=== PATIENT | female | born 1935 | race Caucasian/White ===

== ENCOUNTER 2018-04-04 00:54 | Inpatient (IN) ==
[2018-04-04] MEDS ORDERED: SOLU-MEDROL ONE (01:01)
[2018-04-04] MEDS ORDERED: DUONEB (A & A) INH ONE ×3 (01:01→01:24)
[2018-04-04] MEDS ORDERED: SOLU-MEDROL IV ONE (01:06)
[2018-04-04] MEDS ORDERED: LEVAQUIN 750 MG/D5W 750 MG/150 ML IVPB IV SCH (01:15)
[2018-04-04 01:16] LABS: BE 0.7 mmoll (-3.0-3.0); BLOOD TYPE ARTERIAL; HCO3-(ACT) 25.2 mmoll (20.0-26.0); METHB 1.2 % (0.0-1.5); SAMPLE BLOOD; SAO2 91.2 % (95.0-100.0); THB 12.9 g/dL (11.5-17.4)
[2018-04-04] MEDS ORDERED: ALBUTEROL NEB ONE (01:18)
[2018-04-04 01:20] LABS: PCO2(98.6) 84 mmHg (35-45); PO2(98.6) 68 mmHg (60-100); pH(98.6) 7.18 (7.35-7.45)
[2018-04-04 01:21] LABS: ALLEN TEST NO; MODALITY CANNULA; O2HB 87.8 % (95.0-99.0)
[2018-04-04] MEDS ORDERED: LASIX IV ONE ×3 (01:26→10:07)
[2018-04-04 01:39] LABS: BASO# 0.01 X1000 (0.0-0.2); BASO% 0.1 % (0.0-0.8); EOS# 0.04 X1000 (0.0-0.7); EOS% 0.4 % (0.0-10.0); HEMOGLOBIN 13.1 g/dL (12.0-16.0); IMM GRAN# 0.05 X1000 (0.0-0.04); IMM GRAN% 0.5 % (0.0-0.5); LYMPH# 3.36 X1000 (1.2-3.4); LYMPH% 32.1 % (20.5-51.1); MCH 25.8 PG (27-31); MCHC 30.5 g/dL (33-37); MCV 84.6 FL (81-99); MONO% 11.5 % (1.7-9.3); NEUT# 5.81 X1000 (1.4-6.5); NEUT% 55.4 % (42.2-75.2); PLT 266 X1000 (130-400); RBC 5.08 XMIL (4.2-5.4); RDW 17.3 % (11.5-14.5); WBC 10.47 X1000 (4.8-10.8)
[2018-04-04] MEDS ORDERED: ALBUTEROL NEB INH ONE (01:43)
[2018-04-04] MEDS ORDERED: BENADRYL IV ONE (02:01)
[2018-04-04 02:13] LABS: AGAP 14; ALBUMIN 3.2 g/dL (3.5-5.0); ALKALINE PHOSPHATASE 135 U/L (32-104); BUN 13 mg/dL (8-22); CALCIUM 9.3 mg/dL (8.8-10.2); CHLORIDE 102 mmol/L (98-107); COSMO 288; CREATININE 0.6 mg/dL (0.5-0.9); ESTIMATED GFR > 60; GLUCOSE 151 mg/dL (70-104); GOT 56 U/L (10-30); GPT 26 U/L (10-36); MAGNESIUM 2.1 mg/dL (1.5-2.7); POTASSIUM 4.9 mmol/L (3.5-5.1); SODIUM 143 mmol/L (136-145); TCO2 27 mmol/L (25-35); TOTAL PROTEIN 7.8 g/dL (6.3-8.3)
--- NOTE | 2018-04-04 02:42 | EKG Report ---
Test Performed on : 04/04/2018 01:08:16 AM Test Reason : sob Blood Pressure : / mmHG Vent. Rate : 134 BPM Atrial Rate : 129 BPM P-R Int : 154 ms QRS Dur : 056 ms QT Int : 286 ms P-R-T Axes : 064 -51 075 degrees QTc Int : 427 ms Undetermined rhythm Left anterior fascicular block Left ventricular hypertrophy with repolarization abnormality Abnormal ECG No previous ECGs available Unconfirmed Result
--- NOTE | 2018-04-04 04:05 | PROVIDER DOCUMENTATION ---
This chart was entered by Love Lopez Scribe, acting as scribe for Dick Mcelroy MD. HPI-Respiratory General - General Chief Complaint: Shortness of Breath Stated Complaint: SOB Time Seen by Provider: 04/04/18 01:01 Source: RN/MD (pt too sob to talk) Allergies/Adverse Reactions: Patient Allergies Allergy/AdvReac Type Severity Reaction Status Date / Time codeine Allergy ANAPHYLAXIS Verified 12/15/17 15:46 Home Medications: Home Medication List Medication Instructions Recorded Confirmed Last Taken Type Albuterol Sulfate Inhaler 2 puff INH Q6H PRN PRN #1 inhaler 12/15/17 04/04/18 Unknown Rx [Ventolin Hfa] Budesonide/Formoterol Fumarate 10.2 gm IH BID 30 Days #1 inhaler 12/15/17 Unknown Rx [Symbicort 160-4.5 Mcg Inhaler] Hydrochlorothiazide 25 mg PO DAILY 30 Days #30 tab 12/15/17 04/04/18 Unknown Rx Montelukast [Singulair] 10 mg PO QHS 30 Days #30 tab 12/15/17 04/04/18 Unknown Rx Nebivolol HCl [Bystolic] 10 mg PO DAILY 30 Days #30 tab 12/15/17 04/04/18 Unknown Rx - History of Present Illness-Resp Nature of Presenting Problem: 83 yof presents to ed w/cc sob. she woke up sob and arrived to ed via ems. pt is a former smoker. pt has hx of copd and htn. Review of Systems - Adult - REVIEW OF SYSTEMS - ADULT Constitutional: reports: no symptoms reported Eyes: reports: no symptoms reported Ears, Nose, Mouth & Throat: reports: no symptoms reported Cardiovascular: reports: no symptoms reported Respiratory: reports: see HPI, shortness of breath. denies: cough, excessive sputum production, hemoptysis Gastrointestinal: reports: no symptoms reported Genitourinary: reports: no symptoms reported Musculoskeletal: reports: no symptoms reported Integumentary: reports: no symptoms reported Neurological: reports: no symptoms reported Psychiatric: reports: no symptoms reported Endocrine: reports: no symptoms reported Hematologic/Lymphatic: reports: no symptoms reported Allergic/Immunologic: reports: no symptoms reported All Other Systems: Reviewed and Negative Past History - Adult - PAST MEDICAL HISTORY-ADULT Review of Records: reports: Old Records Reviewed, Nursing Assessment Review, Medications Reviewed, Social history reviewed & non-contributory. Major Childhood Illnesses: reports: denies history Cardiovascular: reports: denies history Respiratory: reports: COPD Gastrointestinal: reports: denies history Obstetrical/Gynecological: reports: denies history Genitourinary: reports: denies history Musculoskeletal: reports: denies history Neurological: reports: denies history Psychiatric: reports: denies history Endocrine/Immune: reports: denies history Other Conditions: reports: denies history - PRIOR SURGERIES/PROCEDURES Surgical/Procedure History: reports: cholecystectomy - IMMUNIZATION STATUS Childhood Immunizations: See Nurse Assessment Flu Vaccine: See Nurse Assessment - FAMILY HISTORY Family History: reviewed, not pertinent - SOCIAL HISTORY Smoking: other (former) Physical Exam-General - PHYSICAL EXAM-ADULT Exam Limited by: pt too sob to talk Initial Vital Signs Reviewed: Yes - CONSTITUTIONAL General Appearance: mild distress. negative: cachetic, anxious, combative - EYES Eyes: PERRL/EOMI, pink conjunctivae - HEAD, EARS, NOSE, MOUTH & THROAT HENMT: normocephalic/atraumatic, moist mucous membranes, normal ENT inspection - NECK Neck: non-tender, full range of motion, supple - RESPIRATORY Respiratory: accessory muscle use, rhonchi. negative: lungs clear, normal breath sounds, decreased breath sounds, crackles, rales - CARDIOVASCULAR Cardiovascular: normal peripheral pulses, regular rate, rhythm, no edema, no gallop, no JVD, no murmur - GASTROINTESTINAL (ABDOMEN) Abdominal Exam: normal bowel sounds, non tender, soft - LYMPHATIC Lymphatic: no adenopathy - MUSCULOSKELETAL Back Exam: normal inspection, no CVA tenderness, no vertebral tenderness Extremity: normal range of motion, non-tender, normal inspection - SKIN Integumentary: normal turgor, warm/dry, pallor. negative: erythema, jaundice, purpura - NEUROLOGIC Neurologic: booking clerk II-XII nml as tested, grossly normal, no motor/sensory deficits - PSYCHIATRIC Psych/Mental Status: normal mood/affect, normal thought content, normal thought process, oriented x 3 Progress - PLAN OF CARE/RESULTS Progress/Plan/Lab Results: Vital Signs - 8 hr 04/04/18 00:54 04/04/18 01:20 04/04/18 01:45 Temperature 97.8 F Pulse Rate 120 H 140 H 136 H Respiratory Rate 38 H 30 H 36 H Blood Pressure 147/106 O2 Sat by Pulse Oximetry 92 L 91 L 04/04/18 02:29 Temperature Pulse Rate Respiratory Rate Blood Pressure O2 Sat by Pulse Oximetry 95 Laboratory Results - last 24 hr 04/04/18 04/04/18 04/04/18 01:00 01:00 01:00 WBC 10.47 RBC 5.08 Hgb 13.1 Hct 43.0 MCV 84.6 MCH 25.8 L MCHC 30.5 L RDW Std Deviation 17.3 H Plt Count 266 MPV 11.0 H Immature Gran % (Auto) 0.5 Neut % (Auto) 55.4 Lymph % (Auto) 32.1 Bradley % (Auto) 11.5 H Eos % (Auto) 0.4 Baso % (Auto) 0.1 Immature Gran # (Auto) 0.05 H Neut # (Auto) 5.81 Lymph # (Auto) 3.36 Bradley # (Auto) 1.20 H Eos # (Auto) 0.04 Baso # (Auto) 0.01 Specimen Type Sample Site pH pCO2 pO2 HCO3 Base Excess Oxyhemoglobin ABG O2 Sat (Calculated) ABG O2 Saturation ABG Carboxyhemoglobin ABG Methemoglobin Steve Test A-a O2 Difference Total Hemoglobin Lactate Liter Flow Blood Gas Modality FiO2 % Sodium 143 Potassium 4.9 Chloride 102 Carbon Dioxide 27 Anion Gap 14 BUN 13 Creatinine 0.6 Estimated GFR/1.73 m2 > 60 BUN/Creatinine Ratio 22 Glucose 151 H Calculated Osmolality 288 Calcium 9.3 Magnesium 2.1 Total Bilirubin 0.50 AST 56 H ALT 26 Alkaline Phosphatase 135 H Creatine Kinase Troponin T Nno-F-Sxnqmckrkqs Pept 3283 H Total Protein 7.8 Albumin 3.2 L Globulin 5.0 Albumin/Globulin Ratio 1.0 04/04/18 04/04/18 04/04/18 01:00 01:00 01:05 WBC RBC Hgb Hct MCV MCH MCHC RDW Std Deviation Plt Count MPV Immature Gran % (Auto) Neut % (Auto) Lymph % (Auto) Bradley % (Auto) Eos % (Auto) Baso % (Auto) Immature Gran # (Auto) Neut # (Auto) Lymph # (Auto) Bradley # (Auto) Eos # (Auto) Baso # (Auto) Specimen Type ARTERIAL Sample Site R BRACHIAL pH 7.18 L* pCO2 84 H* pO2 68 HCO3 25.2 Base Excess 0.7 Oxyhemoglobin 87.8 L* ABG O2 Sat (Calculated) 16.0 ABG O2 Saturation 91.2 L ABG Carboxyhemoglobin 2.50 ABG Methemoglobin 1.2 Steve Test NO A-a O2 Difference 84.0 Total Hemoglobin 12.9 Lactate 2.50 H Liter Flow 4.0 Blood Gas Modality CANNULA FiO2 % 36.0 Sodium Potassium Chloride Carbon Dioxide Anion Gap BUN Creatinine Estimated GFR/1.73 m2 BUN/Creatinine Ratio Glucose Calculated Osmolality Calcium Magnesium Total Bilirubin AST ALT Alkaline Phosphatase Creatine Kinase 88 Troponin T < 0.010 Jfh-B-Chguemzodyp Pept Total Protein Albumin Globulin Albumin/Globulin Ratio Orders Category Date Time Status Admit [facility] Routine AdmDCTranf 04/04/18 03:56 Active Admit Patient To Inpatient Status Routine AdmDCTranf 04/04/18 03:56 Active Code [Resuscitation Status] Routine Care 04/04/18 03:06 Ordered cxr [CHEST-PORTABLE] [RAD] Stat Exams 04/04/18 01:01 Taken ABG [RESP] Routine Lab 04/04/18 01:05 Completed ABG [RESP] Routine Lab 04/04/18 05:00 Ordered CBC WITH ELECTRONIC DIFF [HEME] Stat Lab 04/04/18 01:00 Completed CK PROFILE [SP CHEM] Stat Lab 04/04/18 01:00 Completed CK PROFILE [SP CHEM] Stat Lab 04/04/18 03:10 Ordered COMPREHENSIVE METABOLIC PANEL [CHEM] Stat Lab 04/04/18 01:00 Completed MAGNESIUM [CHEM] Stat Lab 04/04/18 01:00 Completed PROCALCITONIN [CORDERO] Stat Lab 04/04/18 01:00 Received TROPONIN T Stat Lab 04/04/18 01:00 Completed TROPONIN T Stat Lab 04/04/18 03:10 Ordered pro-bnp [PRO B-NATRIURETIC PEPTIDE] Stat Lab 04/04/18 01:00 Completed Albuterol 2.5MG/Ipratrop 0.5MG [Duoneb (A & A)] Med 04/04/18 01:01 Discontinued 3 ml INH NOW ONE Albuterol 2.5MG/Ipratrop 0.5MG [Duoneb (A & A)] Med 04/04/18 01:24 Discontinued 3 ml INH NOW ONE Albuterol 2.5MG/Ipratrop 0.5MG [Duoneb (A & A)] Med 04/04/18 01:24 Discontinued 3 ml INH NOW ONE Albuterol [Albuterol Neb] Med 04/04/18 01:18 Discontinued 7.5 mg .ROUTE .STK-MED ONE Albuterol [Albuterol Neb] Med 04/04/18 01:43 Discontinued 7.5 mg INH NOW ONE Diphenhydramine [Benadryl] Med 04/04/18 02:01 Discontinued 50 mg IV NOW ONE Furosemide [Lasix] Med 04/04/18 01:26 Discontinued 40 mg IV NOW ONE Furosemide [Lasix] Med 04/04/18 02:26 Discontinued 40 mg IV NOW ONE Levofloxacin 750 mg/D5w [Levaquin 750 mg/D5w] Med 04/04/18 01:15 Active 750 mg in 150 ml IV Q24H Methylprednisolone Sod Succ [Solu-Medrol] Med 04/04/18 01:01 Discontinued 125 mg .ROUTE .STK-MED ONE Methylprednisolone Sod Succ [Solu-Medrol] Med 04/04/18 01:06 Discontinued 125 mg IV NOW ONE Aerosol Treatments Routine Oth 04/04/18 01:02 Completed Aerosol Treatments Routine Oth 04/04/18 01:24 Completed Aerosol Treatments Routine Oth 04/04/18 01:24 Completed Aerosol Treatments Stat Oth 04/04/18 01:02 Completed Aerosol Treatments Stat Oth 04/04/18 01:24 Completed Aerosol Treatments Stat Oth 04/04/18 01:24 Completed BIPAP Stat Oth 04/04/18 01:04 Active neb [Aerosol Treatments] Stat Oth 04/04/18 01:43 Completed EKG [EKG] Stat Ther 04/04/18 02:34 Draft Result Diagrams: 04/04/18 01:00 04/04/18 01:00 - REASSESSMENT Reassessment #1 Time Reassessed: 01:37 Status: other (PATIENT IS AOX3 (KNOWS March, AND [facility] [place] (STATES SHE'S NOT SURE WHICH HOSPITAL SHE IS IN SHE IS NOT FROM HERE). I HAVE INFORMED THE PATIENT IMPORTANCE OF BIPAP AND THAT SHE IS CURRENTLY IN RESPIRATORY FAILURE. HOWEVER, PATIETN REFUSE BIPAP OR INTUBATION BUT IS OKAY FOR ACLS. EVENT WITNESSED BY NURSES.) Reassessment #2 Time Reassessed: 03:07 Status: other (PATIENT HAS BEEN ON BIPAP AND MENTALLY IMPROVED. READDRESS THE PATIENT REGARDING CODE STATUS AND PATIENT STATES SHE WANTS TO BE FULL CODE INCLUDING INTUBATION. PATIENT DENIES HISTORY OF NC OR CHF.) Reassessment #3 Time Reassessed: 03:23 Status: other (STILL PENDING TROPONIN AND CK. PER LAB, THEY ARE HEMOLYZED BUT THEY STATES THEY WILL TRY TO RUN IT AND IF WON'T, THEY WILL CALL BACK.) Reassessment #4 Time Reassessed: 03:53 Reassessment #5 Time Reassessed: 04:03 Status: other (SPOKE TO DR. CUEVAS. 1. COPD EXACERBATION; CURRENTLY ON BIPAP; GAVE METHYLPREDNISONE + LEVAQUINE 2. NEW ONSET OF CHF; GAVE LASIX 80MG X1; NEED TO R/O ISCHEMICA CARDIOMYOPATHY AND SERVICE NOT AVAILABLE AT [facility] HOSPITALIST ASSISTANCE.) Departure - Departure Date of Disposition Decision: 04/04/18 Time of Disposition Decision: 04:04 DIAGNOSIS: Respiratory failure with hypercapnia, COPD with exacerbation, New onset of congestive heart failure Disposition: ADMITTED INPATIENT 09 Certified Medical Emergency: Emergent Condition: Fair Referrals and Follow-Ups: None,PCP [Primary Care Provider] - - Critical Care Note This patient required my direct & personal management of CC.: No Attestation - Physician/ ALICIA Attestation Patient care was provided by Advanced Practice Provider:: No The physician spent face to face time with patient:: Yes Advanced Practice Provider documentation review:: Supervising physician onsite and consulted in the evaluation and care of this patient. The physician did have a face to face encounter with the patient. This chart was documented by the indicated scribe, (Love Lopez Scribe) and accurately reflects the services I performed and decisions made by me, Dick Mcelroy MD, as attested by the provider's signature.
[2018-04-04 05:20] LABS: BE 5.7 mmoll (-3.0-3.0); BLOOD TYPE ARTERIAL; HCO3-(ACT) 29.4 mmoll (20.0-26.0); METHB 0.9 % (0.0-1.5); O2(CT) 16.4 mL/dL (15.0-23.0); PCO2(98.6) 48 mmHg (35-45); PO2(98.6) 109 mmHg (60-100); SAMPLE BLOOD; SAO2 99.2 % (95.0-100.0); pH(98.6) 7.42 (7.35-7.45)
[2018-04-04 05:23] LABS: ALLEN TEST NO; MODALITY BI PAP
--- NOTE | 2018-04-04 07:28 | Diag Imaging Result Doc PS360 ---
CHEST-PORTABLE - 04/04/2018 INDICATION: SOB COMPARISON: None FINDINGS: There is cardiomegaly. There are diffuse bilateral interstitial infiltrates/edema. There is a small right pleural effusion. IMPRESSION: Cardiomegaly, interstitial infiltrates/edema, small right pleural effusion. Electronically signed by Glen Hutchinson 04/04/2018 7:25 AM
[2018-04-04 08:35] LABS: URINE EPITHELIAL CELLS <10 /HPF (<10); URINE SOURCE CLEAN CATCH
[2018-04-04 08:36] LABS: BILIRUBIN URINE NEGATIVE (NEGATIVE); BLOOD URINE NEGATIVE (NEGATIVE); CLARITY CLEAR (CLEAR); COLOR YELLOW; GLUCOSE URINE NEGATIVE (NEGATIVE); KETONE URINE NEGATIVE (NEGATIVE); PROTEIN URINE TRACE mg/dL (NEGATIVE); URINE WBC 799057 /HPF (<10)
[2018-04-04 08:37] LABS: LEUKOCYTES URINE NEGATIVE (NEGATIVE); NITRITE URINE NEGATIVE (NEGATIVE); UROBILINOGEN URINE NORMAL
[2018-04-04] MEDS ORDERED: DUONEB (A & A) INH PRN (09:35)
[2018-04-04 11:02] LABS: AGAP 12; ALBUMIN 3.1 g/dL (3.5-5.0); ALKALINE PHOSPHATASE 127 U/L (32-104); BUN 14 mg/dL (8-22); CHLORIDE 100 mmol/L (98-107); COSMO 284; CREATININE 0.7 mg/dL (0.5-0.9); ESTIMATED GFR > 60; GLUCOSE 107 mg/dL (70-104); GOT 66 U/L (10-30); GPT 35 U/L (10-36); SODIUM 142 mmol/L (136-145); TCO2 30 mmol/L (25-35); TOTAL PROTEIN 6.9 g/dL (6.3-8.3)
[2018-04-04] MEDS: DUONEB (A & A) INH SCH ×4 (11:20→22:44)
[2018-04-04] MEDS ORDERED: LOVENOX SUBQ ONE (11:58)
[2018-04-04] MEDS ORDERED: LASIX ONE (13:12)
--- NOTE | 2018-04-04 14:04 | EKG Report ---
Test Performed on : 04/04/2018 10:51:02 AM Test Reason : Verify rythm Blood Pressure : / mmHG Vent. Rate : 091 BPM Atrial Rate : 091 BPM P-R Int : 156 ms QRS Dur : 060 ms QT Int : 362 ms P-R-T Axes : 075 009 063 degrees QTc Int : 445 ms Sinus rhythm. with marked sinus arrhythmia. Possible Left atrial enlargement Borderline ECG When compared with ECG of 04-APR-2018 01:08, (Unconfirmed) Previous ECG has undetermined rhythm, needs review QRS axis shifted right Confirmed by Farhan Woodward MD ([id number]) on 04/10/2018 7:17:11 AM
--- NOTE | 2018-04-04 16:07 | Extremity Venous Study ---
Venous U/S Bilateral Legs - 04/04/2018 INDICATION: elevated ddimer, dyspnea TECHNIQUE: COMPARISON: None FINDINGS: The veins of the lower extremities are fully compressible. There is normal color and pulse wave Doppler signal. IMPRESSION: Negative exam. Electronically signed by Glen Hutchinson 04/04/2018 4:04 PM
--- NOTE | 2018-04-04 16:18 | HISTORY AND PHYSICAL ---
CHIEF COMPLAINT: Shortness of breath. HISTORY OF PRESENT ILLNESS: This is an 83-year-old female with a history of COPD and hypertension who presented to the emergency room complaining of shortness of breath. She states that she was displaced by her [employer], moved to [place] per her friends and she ran out of refills. She states she has not found a primary care physician yet. She states that she ran out of her diuretic about 2 weeks ago and she had not been taking it regular up till then trying to make it last longer. She stated that she over the last 3 to 4 days that she has had increasing shortness of breath stating that she could probably walk about 10 feet and she would have to sit down or hold onto items. Prior to calling 911 she thought she was going to . She does have a history of COPD. She states that she smoked but she quit 30 years ago. She denies any cardiac history or prior cardiac workup. She denies any fevers or chills, any night sweats, any chest pain or palpitations. PAST MEDICAL HISTORY: COPD, hypertension. PAST SURGICAL HISTORY: Cholecystectomy. SOCIAL HISTORY: She denies alcohol, tobacco, or illicit drug use. She did quit smoking 30 years ago. ALLERGIES: Codeine which causes anaphylaxis. HOME MEDICATIONS: Ventolin inhaler 2 puffs q.6 hours p.r.n., Symbicort 160/4.5 b.i.d., hydrochlorothiazide 25 mg p.o. daily, Singulair 10 mg p.o. at bedtime and Bystolic 10 mg p.o. daily. REVIEW OF SYSTEMS: Discussed with patient with pertinent positives stated in the HPI. She denied any syncope, dizziness, chest pain, palpitations, a productive cough, any fevers or chills, any night sweats, any nausea, vomiting, diarrhea, constipation, black or bloody vomitus, black or bloody stools, hematuria, dysuria, frequency, urgency. PHYSICAL EXAMINATION: GENERAL: This is an 83-year-old female who is sitting up in the bed in the ER in no distress. VITAL SIGNS: Blood pressure is 131/77 with a heart rate of 83, respirations are 19, temperature is 98.4 degrees oral with room air saturations 93 to 96% on 4 L nasal cannula. HEENT: Pupils are equal, round, react to light. EOMs are intact. Sclerae are anicteric. Head is normocephalic, atraumatic. Mucous membranes are moist. NECK: Supple with trachea midline. CARDIOVASCULAR: Regular rate and rhythm. S1 and S2 appreciated. She has no lower extremity edema to her left leg. Right leg she states that she has chronic edema and with venous stasis. Peripheral pulses are palpable x4 extremities. PULMONARY: Breath sounds are diminished throughout. She does have rales noted bilateral on posterior. Chest rises falls symmetric with respiration. GASTROINTESTINAL: Abdomen soft, nontender, nondistended with bowel sounds in all 4 quadrants. : Moore is patent to bedside bag with urine clear yellow. SKIN: Warm and dry with no rashes or lesions noted. LABS: WBC is 10.4 with hemoglobin 13.1, hematocrit 43 and platelets of 266,000. Sodium is 143, potassium 4.9, BUN 13, creatinine 0.6 with a glucose of 151. ProBNP is 3283. Troponin is less than 0.010. Urinalysis is essentially negative. Chest x-ray revealed cardiomegaly with interstitial infiltrates and edema with small right pleural effusion. ASSESSMENT AND PLAN: 1. Chronic obstructive pulmonary disease acute on chronic exacerbation. 2. Hypercapnic respiratory failure. 3. Pulmonary edema secondary to patient not taking diuretics. 4. History of hypertension. 5. Elevated proBNP. 6. Chronic right lower extremity edema secondary to [*]. PLAN: The patient will be admitted to the medical surgical floor at [facility]. She will be placed on telemetry. We will give supplemental oxygen as needed keeping saturations greater than 90. She [*] DuoNeb q.4 hours or q.2 hours p.r.n., will get incentive spirometer, will obtain an echocardiogram. Will repeat a CMP as well as cardiac profile and troponin. We will check a TSH, will check blood cultures. We will identify her home medications and continue these as appropriate. As she does have chronic venous stasis to her right lower extremity she states that she has been immobile over the last week we will go ahead and check a D-dimer. For deep vein thrombosis prophylaxis will use Lovenox and gastrointestinal prophylaxis Prilosec. Further treatments pending hospital course. Dictated by KATYA Perkins for Juan Purcell MD This chart was documented by, KATYA Perkins and accurately reflects the services performed, treatment plan and medical decisions as attested by the providers signature Juan Purcell MD. cc: KATYA Perkins MD
[2018-04-04] MEDS ORDERED: ASPIRIN PO ONE (16:28)
--- NOTE | 2018-04-04 17:41 | Diag Imaging Result Doc PS360 ---
CT ANGIOGRM PULMONARY ARTERIES - 04/04/2018 INDICATION: dyspnea, elevated ddimer TECHNIQUE: Axial CT images were obtained after administering intravenous contrast. Coronal MIP images were generated. COMPARISON: None FINDINGS: There is no pulmonary embolism. There is mild cardiomegaly. There are moderate bilateral pleural effusions, right greater than left. There is hazy pulmonary edema. There is also bilateral lower lobe linear infiltrate or atelectasis. Upper abdominal images are unremarkable. Bones are intact. IMPRESSION: Negative for pulmonary embolism. Cardiomegaly, pulmonary edema, pleural effusions, bibasilar atelectasis. This exam was performed using automated exposure control, adjustment of mA or kV according to patient size, and/or use of iterative reconstruction technique Electronically signed by Glen Hutchinson 04/04/2018 5:39 PM
--- NOTE | 2018-04-04 17:58 | CARDIOLOGY CONSULTATION ---
DATE: 04/04/2018 Cardiology was consulted for shortness of breath, abnormal cardiac enzymes. Ms Yvette Joy is an 83-year-old lady with history of severe COPD, hypertension. Came to the emergency room with increasing shortness of breath. She denies any chest pain. She has also run out of her diuretics which she had been taking. She noticed increasing shortness of breath and her shortness of breath worsened over the last 3 to 4 days. She does have a history of COPD is on oxygen. She quit smoking 30 years back. REVIEW OF SYSTEM: 14 -point review of systems was done.GI: There is no history of nausea, vomiting, diarrhea. There is no history of hematemesis or melena. Central nervous system: No focal weakness to suggest a CVA, TIA. Genitourinary: There is no dysuria or hematuria. PAST MEDICAL HISTORY: 1. Hypertension . 2. COPD. 3. Cholecystectomy. 4. Quit smoking 30 years back . HOME MEDICATIONS: Include Bystolic 10, Symbicort 160/4.5 twice daily, singular 10, hydrochlorothiazide 25, Ventolin inhalers. ALLERGIES: Allergic to codeine. PAST SURGICAL HISTORY: Cholecystectomy. PHYSICAL EXAMINATION: Blood pressure was 130/77. Jugular venous pressure was normal, first and second heart sounds were heard. There was no S3 gallop. Respiratory: Scattered inspiratory crepitations. Abdomen: Soft, nontender. There was no guarding, rigidity, bowel sounds were heard. Central nervous system: Alert and was moving all 4 extremities. Examination of extremities revealed pedal edema on the right leg. LABORATORY EXAMINATION: Revealed sodium 142, potassium 4.0, BUN 14, creatinine 0.7, alkaline phosphate 127, AST 66,. CK was normal, troponin abnormal at 0.32 and 0.28, TSH was normal. Chest x-ray suggestive of heart failure. ASSESSMENT AND PLAN: 1. Ms. Yvette Joy is 83-year-old lady with history of chronic obstructive pulmonary disease, hypertension comes with complaints of increasing shortness of breath and right leg pedal edema. From a cardiac standpoint she does not complain of any chest pain, she has shortness of breath, chest x-ray suggestive of heart failure, D-dimer was elevated and CT scan of her chest was performed to rule out pulmonary embolism and report is pending. Her venous Dopplers were negative for deep vein thrombosis . 2. From a cardiac standpoint will get an echocardiogram electrocardiogram did not reveal any evidence of ischemia or infarction. CK was normal. She does not complain of chest pain. Her troponin was abnormal. Will put her on aspirin and continue with her beta blockers. 3. As far as heart failure is concerned, she has been started on Lasix, she had significantly improved urine output with that, I will put her on Lasix 40 mg a day. 4. If her pulmonary angiogram is negative for embolism we will plan for a Cardiolite stress test for assessment for ischemia or LHC if echo reveals wall motion abnormality. She has abnormal troponin could be type 2 myocardial infarction however she does not have chest pain and does not have EKG changes, we will plan for ischemic workup and further recommendation pending the workup. In the interim continue with aspirin, beta-blockers and Lovenox as planned. 5. Chronic obstructive pulmonary disease, continue with her inhalers. 6. We will also get a chest x-ray in the morning. Thank you for the consult. Will follow hospital course. cc: Ward Sanz MD MTDD
[2018-04-04] MEDS: SINGULAIR PO SCH (21:33)
--- NOTE | 2018-04-05 01:08 | HISTORY AND PHYSICAL ---
ADDENDUM: Patient initially presented to the ER last night and was noted to be in acute hypercapnic respiratory failure. PCO2 was markedly elevated. The patient was treated adequately. Was given BiPAP. PCO2 this morning is much improved. The patient is much more awake, alert and only currently in mild distress. Upon further workup, the patient was noted to have an elevated troponin this morning at 0.32. Last night's troponin was normal. We will admit patient to ICU, rule out UT. Most likely this is cardiac strain. EKG is normal. She is having no chest pain. We will ask Cardiology for opinion and we will follow. cc: Juan Purcell MD
[2018-04-05] MEDS: DUONEB (A & A) INH SCH ×6 (02:30→23:28)
[2018-04-05 06:09] LABS: HEMOGLOBIN 10.1 g/dL (12.0-16.0); MCH 25.1 PG (27-31); MCHC 29.7 g/dL (33-37); MCV 84.4 FL (81-99); MPV 11.3 FL (7.4-10.4); RBC 4.03 XMIL (4.2-5.4); RDW 16.6 % (11.5-14.5); WBC 7.05 X1000 (4.8-10.8)
[2018-04-05 06:31] LABS: ALBUMIN 2.7 g/dL (3.5-5.0); CALCIUM 8.9 mg/dL (8.8-10.2); CREATININE 0.9 mg/dL (0.5-0.9); POTASSIUM 2.8 mmol/L (3.5-5.1); TOTAL BILIRUBIN 0.3 mg/dL (0.20-1.00); TOTAL PROTEIN 6.2 g/dL (6.3-8.3)
--- NOTE | 2018-04-05 07:41 | Diag Imaging Result Doc PS360 ---
CHEST-2 VIEWS - 04/05/2018 INDICATION: dyspnea, hypoxemia, copd COMPARISON: 04/04/2018 FINDINGS: The interstitial pulmonary edema has resolved. There is improvement in the small right basilar pleural effusion. There is some strandy atelectasis or infiltrate in the left lung base. Heart size remains top normal. IMPRESSION: Significant improvement from prior. Electronically signed by Glen Hutchinson 04/05/2018 7:39 AM
[2018-04-05] MEDS ORDERED: LOVENOX SUBQ SCH (09:00)
[2018-04-05] MEDS: BYSTOLIC PO SCH (09:42)
[2018-04-05] MEDS: PRILOSEC PO SCH (09:42)
[2018-04-05] MEDS: ASPIRIN PO SCH (09:42)
[2018-04-05] MEDS ORDERED: POTASSIUM CHLORIDE 20 MEQ/SWI 20 MEQ/100 ML IVPB IV SCH (10:04)
[2018-04-05] MEDS ORDERED: KLOR-CON PO ONE (11:35)
--- NOTE | 2018-04-05 12:29 | ECHO REPORT ---
ORDER DATE: 04/04/2018 ECHOCARDIOGRAPHIC MEASUREMENTS: 1. Interventricular septum 1.0. 2. Left ventricular posterior wall 0.8. 3. Diastolic diameter 4.0. 4. Left atrium 3.4 5. Aorta 3.2. SUMMARY OF 2-DIMENSIONAL IMAGIN. Normal left ventricular cavity size. There is septal hypokinesis. Estimated ejection fraction of 55%-60%. 2. Aortic valve leaflets were sclerosed, trileaflet. Mitral valve was normal. Tricuspid valve was normal. Pulmonic valve was normal. 3. There is diastolic dysfunction. 4. There is left atrial enlargement. 5. There is mild mitral regurgitation. 6. There is no aortic stenosis. There is aortic sclerosis associated with mild aortic regurgitation. 7. There is mild tricuspid regurgitation. Peak velocity across the tricuspid valve was 2.8 m/sec. Pulmonary artery systolic pressure of 40 mmHg. 8. There is no pericardial effusion or obvious intracardiac mass or thrombus seen. cc: MD Juan Gonzalez MD
[2018-04-05] MEDS: LASIX PO SCH (12:41)
[2018-04-05] MEDS: SINGULAIR PO SCH (21:00)
--- NOTE | 2018-04-05 22:18 | PROGRESS NOTE ---
DATE: 04/05/2018 SUBJECTIVE: The patient herself notes that she is feeling a little bit better currently. Still having some shortness of breath and coughing, still fatigued. PHYSICAL EXAM: Temp 98, pulse 90, respiratory 20, BP 104/64.General: Patient is awake, alert, pleasant to talk with. She is in no current respiratory distress. HEENT: Normocephalic. Neck: Supple. CARDIOVASCULAR: Regular rate. Chest: Decreased breath sounds but equal. No wheezing, no crackles. Abdomen: Soft, nondistended. Extremities: Moves all extremities. ASSESSMENT: 1. Chronic obstructive pulmonary disease with exacerbation. 2. Hypercapnic respiratory failure. 3. Pulmonary edema. 4. Elevated troponin likely secondary to hypoxic strain and coronary artery disease. PLAN: Patient is planned to have a left heart catheterization by Cardiology. I do feel as though the elevation in her troponins which have been 0.322, 0.284, and 0.23 in respective per session. These are likely surely related to coronary disease. She will need to have further workup. cc: Juan Purcell MD
[2018-04-06] MEDS: DUONEB (A & A) INH SCH ×6 (03:05→23:09)
[2018-04-06 06:10] LABS: EOS# 0.02 X1000 (0.0-0.7); EOS% 0.3 % (0.0-10.0); IMM GRAN# 0.03 X1000 (0.0-0.04); IMM GRAN% 0.4 % (0.0-0.5); LYMPH# 1.36 X1000 (1.2-3.4); LYMPH% 19.4 % (20.5-51.1); MCH 25.3 PG (27-31); MCHC 29.4 g/dL (33-37); MCV 86.1 FL (81-99); MONO% 17.1 % (1.7-9.3); MPV 11.3 FL (7.4-10.4); NEUT# 4.41 X1000 (1.4-6.5); NEUT% 62.8 % (42.2-75.2); PLT 198 X1000 (130-400); RBC 3.95 XMIL (4.2-5.4); RDW 17.2 % (11.5-14.5); WBC 7.02 X1000 (4.8-10.8)
[2018-04-06 06:29] LABS: AGAP 8; ALBUMIN 2.6 g/dL (3.5-5.0); ALKALINE PHOSPHATASE 89 U/L (32-104); BUN 17 mg/dL (8-22); CALCIUM 8.6 mg/dL (8.8-10.2); CHLORIDE 102 mmol/L (98-107); COSMO 288; CREATININE 0.7 mg/dL (0.5-0.9); ESTIMATED GFR > 60; GLUCOSE 84 mg/dL (70-104); GOT 26 U/L (10-30); GPT 20 U/L (10-36); MAGNESIUM 1.7 mg/dL (1.5-2.7); POTASSIUM 3.4 mmol/L (3.5-5.1); SODIUM 144 mmol/L (136-145); TCO2 34 mmol/L (25-35)
[2018-04-06] MEDS: PRILOSEC PO SCH (06:56)
[2018-04-06] MEDS: BYSTOLIC PO SCH (08:24)
[2018-04-06] MEDS: ASPIRIN PO SCH (08:24)
[2018-04-06] MEDS: KLOR-CON PO SCH (09:34)
[2018-04-06] MEDS: LASIX PO SCH (09:34)
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
[2018-04-06] MEDS ORDERED: ATIVAN IV ONE (14:00)
[2018-04-06] MEDS: SINGULAIR PO SCH (20:38)
[2018-04-06] MEDS: LIPITOR PO SCH (20:38)
[2018-04-07] MEDS: DUONEB (A & A) INH SCH ×6 (03:27→23:25)
[2018-04-07 05:39] LABS: BASO# 0.01 X1000 (0.0-0.2); BASO% 0.2 % (0.0-0.8); EOS# 0.04 X1000 (0.0-0.7); EOS% 0.7 % (0.0-10.0); HEMATOCRIT 37.6 % (37.0-47.0); HEMOGLOBIN 10.9 g/dL (12.0-16.0); IMM GRAN# 0.03 X1000 (0.0-0.04); IMM GRAN% 0.5 % (0.0-0.5); LYMPH# 1.25 X1000 (1.2-3.4); LYMPH% 21.3 % (20.5-51.1); MCH 25.6 PG (27-31); MCV 88.3 FL (81-99); MONO# 0.99 X1000 (0.11-0.59); MONO% 16.9 % (1.7-9.3); MPV 11.3 FL (7.4-10.4); NEUT# 3.55 X1000 (1.4-6.5); NEUT% 60.4 % (42.2-75.2); PLT 206 X1000 (130-400); RBC 4.26 XMIL (4.2-5.4); RDW 17.6 % (11.5-14.5); WBC 5.87 X1000 (4.8-10.8)
[2018-04-07 05:42] LABS: INR 0.94; PROTIME 13.3 Seconds (11.0-16.0)
[2018-04-07 05:53] LABS: RETIC% 1.35 % (0.8-2.1); RETIC-HE 26.9 PG (28.2-36.6)
[2018-04-07 05:57] LABS: CALCIUM 8.7 mg/dL (8.8-10.2); CREATININE 0.9 mg/dL (0.5-0.9); MAGNESIUM 1.9 mg/dL (1.5-2.7); POTASSIUM 3.6 mmol/L (3.5-5.1)
[2018-04-07] MEDS ORDERED: LOVENOX SUBQ SCH (06:00)
[2018-04-07 06:04] LABS: IRON SATURATION 14 %; TIBC 260 ug/dL; TOTAL IRON 36 ug/dL (49-151); UNBOUND IRON 224 ug/dL (112-346)
[2018-04-07 06:14] LABS: FERRITIN 77 ng/mL (13-150)
[2018-04-07] MEDS: PRILOSEC PO SCH (08:18)
[2018-04-07] MEDS: BYSTOLIC PO SCH (08:18)
[2018-04-07] MEDS: ASPIRIN PO SCH (08:18)
[2018-04-07] MEDS ORDERED: POTASSIUM CHLORIDE 20% LIQUID PO ONE (08:27)
[2018-04-07] MEDS ORDERED: SODIUM CHLORIDE 0.9% 20 ML ONE (08:28)
[2018-04-07] MEDS ORDERED: HEPARIN ONE (08:28)
[2018-04-07] MEDS ORDERED: NITROGLYCERIN ONE (08:28)
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
[2018-04-07] MEDS: KLOR-CON PO SCH (09:06)
[2018-04-07] MEDS ORDERED: ATIVAN ONE (09:36)
[2018-04-07] MEDS ORDERED: HEPARIN 1000 UNITS/NS 2,000 UNIT/1,000 ML IV.SOLN ONE (09:48)
[2018-04-07] MEDS ORDERED: VERSED ONE (09:48)
[2018-04-07] MEDS ORDERED: DILAUDID ONE (09:48)
[2018-04-07] MEDS ORDERED: CLAVE TWINSITE 32 IN 11959 ONE (10:14)
[2018-04-07] MEDS ORDERED: ANESTHESIA PB SET 88 IN 5742 ONE (10:14)
[2018-04-07] MEDS ORDERED: NS 1,000 ML ONE (10:14)
[2018-04-07] MEDS ORDERED: KLOR-CON PO ONE (10:43)
--- NOTE | 2018-04-07 11:23 | CARDIAC CATH REPORT ---
PROCEDURE NAME: - INDICATION: Possible angina. PROCEDURES PERFORMED: 1. Left heart catheterization. 2. Selective coronary angiography. PROCEDURE IN DETAIL: Ms. Joy was brought to the catheterization laboratory in fasting state. Informed consent was obtained. Prepped in usual fashion. She was anesthetized over the right radial artery after Steve's test proved adequate. A 5-Hungarian sheath was placed. Radial cocktail administered. Catheters were introduced. Hemodynamic measurements made in the ascending thoracic aorta. Coronary angiography was performed in multiple views using JL3.5 and JR4 diagnostic catheters. Left heart catheterization was performed using the JR4. At the conclusion of the procedure, all sheaths and catheters were removed. TR band was left inflated with 11 mL of air. Good capillary refill. Good hemostasis. 5-10 mL of blood loss. 35 mL of contrast. FINDINGS: 1. The left main is normal. 2. Left anterior descending and circumflex vessels originate from the left main. They are essentially normal with the exception of a large diagonal which has very minor luminal irregularities. 3. Right coronary artery originates from the right coronary cusp. Very minimal distal luminal irregularities are noted. 4. Aortic blood pressure 122/61 with a mean 86. Left ventricle pressure 129/3 with an LVEDP of 11. ASSESSMENT: Ms. Joy is an 83-year-old female who presented with shortness of breath and had a troponin elevation. PLAN: She does not have any flow-limiting lesions. She will return to the floor for usual postprocedure convalescence. I will relay the findings to her primary exhaust and muffler fitter. cc: Dario Elam MD
[2018-04-07] MEDS: LASIX PO SCH (14:15)
[2018-04-07] MEDS: LIPITOR PO SCH (20:23)
[2018-04-07] MEDS: SINGULAIR PO SCH (20:23)
[2018-04-08] MEDS: DUONEB (A & A) INH SCH ×6 (02:46→23:40)
[2018-04-08 05:45] LABS: AGAP 8; BUN 20 mg/dL (8-22); CALCIUM 7.6 mg/dL (8.8-10.2); CHLORIDE 102 mmol/L (98-107); COSMO 283; CREATININE 0.7 mg/dL (0.5-0.9); ESTIMATED GFR > 60; GLUCOSE 85 mg/dL (70-104); MAGNESIUM 1.8 mg/dL (1.5-2.7); SODIUM 141 mmol/L (136-145); TCO2 31 mmol/L (25-35)
[2018-04-08] MEDS: PRILOSEC PO SCH (06:17)
[2018-04-08] MEDS: LASIX PO SCH (08:44)
[2018-04-08] MEDS: ASPIRIN PO SCH (08:44)
[2018-04-08] MEDS: KLOR-CON PO SCH (08:45)
[2018-04-08] MEDS: BYSTOLIC PO SCH (08:45)
--- NOTE | 2018-04-08 08:50 | PROGRESS NOTE ---
DATE: 04/08/2018 SUBJECTIVE: She says she feels great, breathing much better. Feels like she could run a race. Still has a Moore catheter in. We need to make sure she has O2 at home. OBJECTIVE: Vital Signs: Temperature 98.2 degrees, pulse 78, respirations 14, blood pressure 111/64. HEENT: Pupils are equal and round. Lungs: Clear in all lung carias. Cardiovascular Examination: Regular rhythm and rate without murmur or S3. Abdomen: Soft. Is and Os: Urine output was 3500 mL. ASSESSMENT AND PLAN: She initially had presented to the emergency room with acute hypercapnic respiratory failure. PCO2 was markedly elevated and treated with BiPAP. Enzymes, troponins were elevated and so she underwent heart catheterization. Heart catheterization showed left anterior descending, circumflex vessels originate from the left main, essentially normal, with the exception for a large diagonal which had very minor luminal irregularities. Right coronary arteries originate from the right coronary cusp. She does not have any flow-limiting lesions. She is breathing much better. We need to see if we can arrange her for some nasal cannula oxygen. She would like to go back to [facility]. She does have some diastolic dysfunction. She did have some hypokalemia which has been supplemented. We will get her Moore catheter out, see if we can get her oxygen arranged, both home oxygen and ambulatory oxygen, and see if she can go back to [facility], I think tomorrow. Her renal function looks good. Her current medications, I think, is what we will send her home on. Lipitor 40 mg a day, Singulair 10 mg a day. She takes albuterol/ipratropium treatments as needed, aspirin 81 mg a day, Lasix 40 mg a day, Bystolic 10 mg a day, Prilosec 40 mg a day, potassium chloride ER 20 mEq daily. Note that on her echocardiogram, left ventricular function looked good, normal size, and ejection fraction of 55-60%. No significant valvular dysfunction. There is mild mitral regurgitation and there is diastolic dysfunction. cc: Steve Armenta MD
[2018-04-08] MEDS ORDERED: DUONEB (A & A) ONE (11:26)
[2018-04-08] MEDS: LIPITOR PO SCH (21:29)
[2018-04-08] MEDS: SINGULAIR PO SCH (21:29)
[2018-04-09] MEDS: DUONEB (A & A) INH SCH ×3 (03:42→11:33)
[2018-04-09] MEDS: PRILOSEC PO SCH (06:34)
--- NOTE | 2018-04-09 07:59 | PROGRESS NOTE ---
DATE: 04/09/2018 SUBJECTIVE: Ms. Joy is feeling much better, comfortable. She had a good night's sleep last night. She remains afebrile. Her swelling in her foot has gone down. She is eating pretty well. OBJECTIVE: Vital Signs: Temperature 98.8 degrees, pulse 75, respirations 17, blood pressure 110/45. HEENT: Pupils are equal and round. Lungs: Clear in all lung carias. Cardiovascular Examination: Regular rhythm and rate without murmur or S3. Abdomen: Soft. Skin: Warm and dry. Is and Os: Urine output is 1700 mL. ASSESSMENT AND PLAN: 1. Initially presented to the emergency room with acute hypercapnic respiratory failure. PCO2 was markedly elevated. She used a BiPAP for a time. Troponin was elevated so underwent heart catheterization that showed left anterior descending and circumflex vessels originating from the left main, essentially normal though with the exception for a large diagonal with very minor luminal irregularities. Right coronary artery originates from the right coronary cusp. She did not have any flow-limiting lesions. Would get her set up to get some oxygen. She did have some diastolic dysfunction. [place] like she had reached maximal hospital benefit. We are going to try and get her back to [facility] today. 2. Aspirin 81 mg a day, Lipitor 40 mg a day, Lasix 40 mg a day, Singulair 10 mg a day, Bystolic 10 mg a day, Prilosec 40 mg daily, Klor-Con 20 mEq by mouth daily. She will stay on her Ventolin inhaler as needed and budesonide inhaler, which is Symbicort 160/4.5, I think one puff twice a day. We will see if we can keep her on her 2 L of oxygen per nasal cannula. cc: Steve Armenta MD
[2018-04-09] MEDS: ASPIRIN PO SCH (08:19)
[2018-04-09] MEDS: KLOR-CON PO SCH (08:19)
[2018-04-09] MEDS: LASIX PO SCH (08:19)
[2018-04-09] MEDS: BYSTOLIC PO SCH (08:19)
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
[2018-04-09 11:55] VITALS: BP 130/38
== END 2018-04-09 12:05 | disposition home or self-care (01) | DRG 189 ==
LOC: P.ED 00:54 → P.EDIPHOLD 06:05 → SUATTDRO 06:05 → P.MEDSURG 10:22 → P.ICU 11:48 → 3S 04-06 18:37
PROVIDERS: ATTEND Emergency Medicine
CPT/HCPCS: 51702; 71010; 71020; 71045; 71046; 71275; 80048; 80053; 80061; 81001; 82550; 82607; 82728; 82746; 82805; 83540; 83550; 83721; 83735; 83880; 84145; 84443; 84484; 85025; 85027; 85045; 85379; 85610; 87040; 93005; 93010; 93306; 93458; 93970; 94640; 94660; 94760; 94761; 94799; 96365; 96366; 96375; 96376; 99285; A9270; C8929; J1170; J1200; J1644; J1650; J1940; J1956; J2060; J2250; J2930; J3480; J7030; Q9957; Q9967